=== PATIENT | female | born 1955 | race Caucasian/White ===

== ENCOUNTER 2019-07-08 13:13 | Emergency (ER) | payer OTHER ==
[~2019-07-08] VITALS: Ht 160 cm; Wt 40.8 kg
[2019-07-08] MEDS ORDERED: SODIUM CHLORIDE 0.9% 1,000 ML IV ONE ×2 (13:23)
[2019-07-08] MEDS ORDERED: ONDANSETRON HCL 4 MG/2 ML VIAL IV ONE (13:30)
[2019-07-08] MEDS ORDERED: MORPHINE SULF INJ 2 MG/ML SYRINGE 1ML IV ONE (13:30)
[2019-07-08 15:12] LABS: Basophils # (auto) 0.1 uL; Basophils % (auto) 0.5 % (0.0-2.0); Eosinophils # (auto) 0.2 uL; Hemoglobin 16.5 g/dL (12.2-16.2); Lymphocytes # (auto) 1.7 uL
[2019-07-08 15:14] LABS: Eosinophils % (auto) 1.4 % (0.0-7.0); Hematocrit 48.2 % (36.0-46.0); Lymphocytes % (auto) 13.1 % (10.0-50.0); Mean Corpuscular Hemoglobin 35.5 pg (28.0-32.0); Mean Corpuscular Hgb Conc. 34.2 g/dL (32.0-36.0); Mean Corpuscular Volume 103.8 fL (80.0-100.0); Monocytes # (auto) 0.5 uL; Monocytes % (auto) 3.9 % (0.0-12.0); Neutrophils # (auto) 10.9 uL; Neutrophils % (auto) 81.1 % (37.0-80.0); Nucleated Red Blood Cells % 0.2 %; Platelet Count (auto) 253 10^3/uL (140-450); Red Blood Cells 4.64 10^6/uL (4.0-5.20); White Blood Cell 13.4 10^3/uL (4.4-10.8)
[2019-07-08 15:35] LABS: Albumin 3.5 g/dL (3.4-5.0); Anion Gap 10 (5-15); Blood Urea Nitrogen 19 mg/dL (7-18); Calcium 9.2 mg/dL (8.5-10.1); Carbon Dioxide 24 mmol/L (21-32); Chloride 99 mmol/L (98-107); Glucose 95 mg/dL (74-106); Potassium 3.6 mmol/L (3.5-5.1); Sodium 133 mmol/L (136-145)
[2019-07-08 15:41] LABS: Alanine Aminotransferase 43 U/L (13-56); Alkaline Phosphatase 175 U/L (45-117); Aspartate Aminotransferase 36 U/L (15-37); BUN/Creatinine Ratio 51.4; Bilirubin, Total 0.8 mg/dL (0.2-1.0); GFR African American 228 mL/min; GFR Non-African American 189 mL/min; Total Protein 7.1 g/dL (6.4-8.2)
[2019-07-08 16:00] VITALS: BP 152/74
== END 2019-07-08 18:10 | disposition home or self-care (01) ==
LOC: ER 13:13 → EDBD 13:13 → ER 18:10
DX: R62.7 Adult failure to thrive (principal); E86.0 Dehydration; Z87.891 Personal history of nicotine dependence; Z85.07 Personal history of malignant neoplasm of pancreas; Z88.0 Allergy status to penicillin; Z88.2 Allergy status to sulfonamides; Z91.041 Radiographic dye allergy status
CPT/HCPCS: 36415; 80053; 83605; 84484; 85025; 87040; 93005; 96361; 96374; 96375; 99284; J2270; J2405; J7030

== ENCOUNTER → 2019-09-05 | Emergency (ER) | payer OTHER ==
[~2019-09-05] VITALS: Ht 154.9 cm; Wt 45.4 kg
[~2019-09-05] MED LIST: DOCUSATE SOD 100 MG CAP PO ONE; HYDROmorphone HCL 2 MG/ML VL IV ONE; LORazepam 2MG/ML-1ML VIAL IV ONE; LORazepam 2MG/ML-1ML VIAL ONE; ONDANSETRON HCL 4 MG/2 ML VIAL IV ONE; POLYETHYLENE GLYCOL 17 GM PWDR PO ONE; SENNA 8.6 MG TAB PO ONE
[2019-09-05 06:27] LABS: INR 1.19 (0.9-1.15); Partial Thromboplastin Time 26.3 sec (23.64-32.05)
[2019-09-05 06:53] LABS: Basophils # (auto) 0.1 10 ^3/uL (0-0.2); Basophils % (auto) 0.4 % (0.0-2.0); Eosinophils # (auto) 0.2 10 ^3/uL (0-0.8); Eosinophils % (auto) 0.8 % (0.0-7.0); Hemoglobin 12.2 g/dL (12.2-16.2); Lymphocytes # (auto) 1.4 10 ^3/uL (0.4-5.4); Lymphocytes % (auto) 6.7 % (10.0-50.0); Mean Corpuscular Hemoglobin 32.8 pg (28.0-32.0); Mean Corpuscular Hgb Conc. 33.8 g/dL (32.0-36.0); Monocytes % (auto) 9.3 % (0.0-12.0); Neutrophils # (auto) 17.5 10 ^3/uL (1.6-8.6); Neutrophils % (auto) 82.8 % (37.0-80.0); Platelet Count (auto) 272 10^3/uL (140-450); Red Blood Cells 3.72 10^6/uL (4.0-5.20); Red Cell Distribution Width 14.8 % (11.8-14.3); White Blood Cell 21.2 10^3/uL (4.4-10.8)
[2019-09-05 07:33] LABS: Albumin 2.7 g/dL (3.4-5.0); Amylase 8 U/L (25-115); Anion Gap 8 (5-15); Blood Urea Nitrogen 14 mg/dL (7-18); Calcium 8.8 mg/dL (8.5-10.1); Carbon Dioxide 30 mmol/L (21-32); Chloride 97 mmol/L (98-107); Glucose 111 mg/dL (74-106); Lipase 20 U/L (73-393); Potassium 4.1 mmol/L (3.5-5.1); Sodium 135 mmol/L (136-145)
[2019-09-05 07:39] LABS: Alanine Aminotransferase 17 U/L (13-56); Alkaline Phosphatase 214 U/L (45-117); Aspartate Aminotransferase 36 U/L (15-37); BUN/Creatinine Ratio 45.2; Bilirubin, Total 0.6 mg/dL (0.2-1.0); GFR African American 280 mL/min; GFR Non-African American 231 mL/min; Total Protein 6.4 g/dL (6.4-8.2)
[2019-09-05 10:20] LABS: Urine Amorphous Crystal FEW /hpf (None Seen); Urine Bacteria FEW /hpf (None Seen); Urine Blood Negative /uL (Negative); Urine Hyaline Cast FEW /lpf (0 - 2); Urine Mucus FEW (None Seen); Urine Specific Gravity 1.017 (1.001-1.035); Urine WBC 2 /hpf (0 - 5)
[2019-09-05 14:57] VITALS: BP 163/80
== END | disposition home or self-care (01) ==
LOC: EDUNIT# 05:00 → ER 05:10 → EDBD 05:10
DX: C25.9 Malignant neoplasm of pancreas, unspecified (principal); D72.829 Elevated white blood cell count, unspecified; Z88.0 Allergy status to penicillin; Z88.2 Allergy status to sulfonamides; Z91.041 Radiographic dye allergy status
CPT/HCPCS: 36415; 74176; 80053; 81001; 82150; 82962; 83690; 83735; 84484; 85025; 85610; 85730; 93005; 96374; 96375; 96376; 99285; J1170; J2060; J2405